=== PATIENT | female | born 1955 | race Caucasian/White ===

== ENCOUNTER → 2025-01-02 | Outpatient (CLI) | payer MEDICARE, SELFPAY ==
--- NOTE | 2025-01-02 15:06 | RAD_ITS ---
PROCEDURE: ABDOMEN SINGLE VIEW 01/02/2025 REASON FOR EXAM: KIDNEY STONES TECHNIQUE: ABDOMEN SINGLE VIEW COMPARISON: None. FINDINGS: There is a nonobstructive bowel gas pattern. There is a 5 mm calcific density projected over the left renal outline. There are no calcific densities projected over the right renal outline or along the path of either ureter. 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 There is mild compression of the superior and inferior endplates of T11. RAD/Abdomen Single View IMPRESSION: Left nephrolithiasis. Other findings as noted. Reading Location: [place] [id number]
== END | disposition home or self-care (01) ==
LOC: MTRAD 15:06
PROVIDERS: PCP Internal Medicine; Referring Provider Urology; Visit Provider Urology
DX: N20.0 Calculus of kidney (principal)
CPT/HCPCS: 74018